=== PATIENT | female | born 2000 | race Caucasian/White ===

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

== ENCOUNTER 2020-12-25 07:05 | Emergency (ER) | payer OTHER ==
[~2020-12-25] VITALS: Ht 152.4 cm; Wt 68.2 kg
[2020-12-25 07:14] VITALS: TEMP 98.1
[2020-12-25] MEDS ORDERED: LEXAPRO 10MG10 MG PO (07:24)
[2020-12-25] MEDS ORDERED: WELLBUTRIN XL150 MG PO (07:25)
[2020-12-25] MEDS ORDERED: TESSALON P100 MG/CAP PO (07:26)
[2020-12-25] MEDS ORDERED: ROBITUSSIN A-C S1 M1 PO (07:27)
[2020-12-25 07:52] LABS: BASO % 0.5 % (0.0-2.0); EOS # 0.1 (0.0-0.7); EOS % 1.5 % (0-4.0); GRAN # 4.7 (1.4-6.5); GRAN % 71.3 % (42.2-75.2); HEMATOCRIT 39.4 % (37.0-47.0); LYMPH # 1.3 (1.2-3.4); LYMPH % 19.4 % (20.0-51.0); MEAN CELL VOLUME 94 fl (80.0-100.0); MEAN CORPUSCULAR HEMOGLOBIN 31 pg (27.0-31.0); MEAN CORPUSCULAR HGB CONC 33 g/dl (33.0-37.0); MEAN PLATELET VOLUME 9.2 fl (7.4-10.4); MONO # 0.5 (0.1-0.6); PLATELET COUNT 237 K/mm3 (130-400); REDCELL DISTRIBUTION WIDTH-CV 11.8 % (11.5-14.5)
[2020-12-25 08:05] LABS: ALANINE AMINOTRANSFERASE 20 U/L (4-34); ALBUMIN 4.2 gm/dL (3.5-5.0); ALKALINE PHOSPHATASE 56 U/L (50-136); ANION GAP 7 mmol/L (7-16); AST,SGOT 29 U/L (15-37); BILIRUBIN,TOTAL 0.4 mg/dL (0.0-1.0); BLOOD UREA NITROGEN 10 mg/dL (7-17); C-REACTIVE PROTEIN < 0.5 mg/dL (0.0-0.9); CARBON DIOXIDE 29 mmol/L (22-30); CHLORIDE 107 mmol/L (98-107); CREATININE, serum 0.75 (0.52-1.25); GLUCOSE 96 mg/dL (74-106); LIPASE 136 U/L (23-300); POTASSIUM 4.1 mmol/L (3.4-5.0); SODIUM 143 mmol/L (137-145); TOTAL PROTEIN 7.2 gm/dL (6.4-8.2)
[2020-12-25 08:12] LABS: COLLECTION METHOD CLEAN CATCH
[2020-12-25] MEDS ORDERED: PRILOSEC 20MG20 MG PO (08:23)
[2020-12-25] MEDS ORDERED: ZOFRAN ODT4 MG PO (08:23)
[2020-12-25 08:37] VITALS: BP 117/78; PULSE 87
[2020-12-25 08:37] LABS: MUCOUS Present /lpf; PH 6 (5-8); URINE APPEARANCE Hazy; URINE BACTERIA None Seen /hpf; URINE BILIRUBIN Negative (NEGATIVE); URINE BLOOD 1+ (NEGATIVE); URINE COLOR Yellow; URINE GLUCOSE Negative (NEGATIVE); URINE KETONE Negative (NEGATIVE); URINE LEUKOCYTE ESTERASE 2+ (NEGATIVE); URINE NITRATE Negative (NEGATIVE); URINE PROTEIN(semi-quant) Negative (NEGATIVE); URINE UROBILINOGEN Negative (NEGATIVE)
== END 2020-12-25 08:36 | disposition home or self-care (01) ==
LOC: COL.ER 07:05
PROVIDERS: Family Medicine
DX: K29.70 Gastritis, unspecified, without bleeding (principal); Z91.018 Allergy to other foods
CPT/HCPCS: C9113; J2405; J7120